=== PATIENT | male | born 1945 | race Caucasian/White ===

== ENCOUNTER 2017-03-10 14:05 | Emergency (ER) | payer MEDICARE ==
[~2017-03-10] VITALS: Ht 180.3 cm; Wt 75.0 kg
[2017-03-10 14:07] VITALS: BP 184/79; PULSE 60; RESP 17; TEMP 97.3; O2SAT 100
[2017-03-10] MEDS ORDERED: BACT400T PO (15:00)
[2017-03-10] MEDS ORDERED: CEPH-460 PO (15:00)
--- NOTE | 2017-03-10 15:01 | PD ---
HPI Chief Complaint: Wound/Suture/Staple Re-Check Time Seen by Provider: 14:50 Travel History International Travel<30 days: No Contact w/Intl Traveler<30days: No Traveled to known affect area: No History of Present Illness HPI Healthy 71-year-old male here with complaint of skin problem. Patient scraped his right lower extremity approximate 1 week ago and has noticed an open wound with progressively increasing worse and redness and localized swelling. No pain. Is able ambulate without any difficulty. No systemic symptoms, streaking erythema, fevers or chills. PFSH Past Medical History Medical History: Denies Significant Hx Past Surgical History Other Surgery: Yes (cataract) Social History Tobacco Use: No Allergies-Medications (Allergen,Severity, Reaction): Coded Allergies: No Known Allergies (Unverified , 03/10/17) Reported Meds & Prescriptions Reported Meds & Active Scripts Active Keflex (Cephalexin) 500 Mg Cap 500 Mg PO Q8H 7 Days Bactrim (Sulfamethoxazole-Trimethoprim) 400-80 Mg Tab 1 Tab PO BID 7 Days Review of Systems Except as stated in HPI: all other systems reviewed are Neg Physical Exam Narrative GENERAL: Well-appearing male male without any acute distress SKIN: Focused skin assessment warm/dry. Right lower extremity with 2 x 2 cm superficial abrasion with surrounding erythema and slight induration but no palpable fluctuance, pain or swelling in the calf HEAD:Normocephalic. EYES: No scleral icterus. No injection or drainage. ENT: Mucous membranes pink and moist. CARDIOVASCULAR: Regular rate and rhythm. RESPIRATORY: No accessory muscle use. MUSCULOSKELETAL: Normal gait, strength NEUROLOGICAL: Awake and alert. normal speech. PSYCHIATRIC: Appropriate mood and affect; insight and judgment normal. Data Data Last Documented VS Vital Signs Date Time Temp Pulse Resp B/P Pulse Ox O2 Delivery O2 Flow Rate FiO2 03/10/17 14:55 16 03/10/17 14:07 97.3 60 184/79 100 MDM Medical Decision Making Medical Screen Exam Complete: Yes Emergency Medical Condition: Yes Medical Record Reviewed: Yes Differential Diagnosis 71-year-old male here with complaint of right lower extremity wound. Exam is consistent with cellulitis. No palpable abscess. No evidence of DVT Narrative Course Anabiotic's for home Diagnosis Primary Impression: Cellulitis of right lower extremity Referrals: Primary Care Physician as needed Additional Instructions: Antibiotics as prescribed. Med/Other Pt SpecificInfo: Prescription(s) given Scripts Cephalexin (Keflex)500 Mg [id number] Mg PO Q8H 7 Days Ref 0 Prov:Damari Rothman MD 03/10/17 Sulfamethoxazole-Trimethoprim (Bactrim)400-80 Mg Tab1 Tab PO BID 7 Days Ref 0 Prov:Damari Rothman MD 03/10/17 Disposition: 01 DISCHARGE HOME Condition: Stable Damari Rothman MD Mar 10, 2017 15:01
== END 2017-03-10 15:31 | disposition home or self-care (01) ==
LOC: NEPD 14:05
DX: L03.115 Cellulitis of right lower limb (principal)
CPT/HCPCS: 99282